=== PATIENT | female | born 1985 | race Caucasian/White ===

== ENCOUNTER 2021-02-06 20:22 | Emergency (ER) | payer MEDICAID ==
[~2021-02-06] VITALS: Ht 160 cm; Wt 77.3 kg
[2021-02-06] MEDS ORDERED: FLEXERIL 1010 MG/TAB PO (22:27)
[2021-02-07 00:15] VITALS: BP 128/69; PULSE 74; TEMP 98.2
== END 2021-02-07 00:15 | disposition home or self-care (01) ==
LOC: COL.ER 20:22
DX: S16.1XXA Strain of muscle, fascia and tendon at neck level, initial encounter (principal); X50.1XXA Overexertion from prolonged static or awkward postures, initial encounter
CPT/HCPCS: J1170; J1885; J3360

== ENCOUNTER 2021-05-06 12:49 | Emergency (ER) | payer MEDICAID ==
[~2021-05-06 12:49] MED LIST: FLEXERIL 1010 MG/TAB PO
[2021-05-06 13:04] VITALS: TEMP 98.4
[2021-05-06 13:44] LABS: BASO % 0.4 % (0.0-2.0); EOS # 0.1 (0.0-0.7); EOS % 0.8 % (0-4.0); GRAN # 4.9 (1.4-6.5); GRAN % 62.2 % (42.2-75.2); HEMATOCRIT 37.3 % (37.0-47.0); HEMOGLOBIN 12.2 g/dl (12.5-16.0); LYMPH # 2.1 (1.2-3.4); LYMPH % 27.1 % (20.0-51.0); MEAN CELL VOLUME 82 fl (80.0-100.0); MEAN CORPUSCULAR HEMOGLOBIN 27 pg (27.0-31.0); MEAN CORPUSCULAR HGB CONC 33 g/dl (33.0-37.0); MEAN PLATELET VOLUME 9.8 fl (7.4-10.4); MONO # 0.7 (0.1-0.6); MONO % 9.1 % (1.7-9.3); PLATELET COUNT 223 K/mm3 (130-400); RED BLOOD COUNT 4.55 M/mm3 (4.10-5.30); REDCELL DISTRIBUTION WIDTH-CV 12.9 % (11.5-14.5)
[2021-05-06 13:56] LABS: ALANINE AMINOTRANSFERASE 23 U/L (4-34); ALBUMIN 4.3 gm/dL (3.5-5.0); ALKALINE PHOSPHATASE 65 U/L (50-136); ANION GAP 8 mmol/L (7-16); AST,SGOT 27 U/L (15-37); BILIRUBIN,TOTAL 0.2 mg/dL (0.0-1.0); BLOOD UREA NITROGEN 14 mg/dL (7-17); CALCIUM 9.4 mg/dL (8.4-10.2); CARBON DIOXIDE 25 mmol/L (22-30); CHLORIDE 105 mmol/L (98-107); CREATININE, serum 0.66 (0.52-1.25); GLUCOSE 111 mg/dL (74-106); LIPASE 68 U/L (23-300); POTASSIUM 4.1 mmol/L (3.4-5.0); SODIUM 138 mmol/L (137-145); TOTAL PROTEIN 7.9 gm/dL (6.4-8.2)
[2021-05-06 14:01] LABS: C-REACTIVE PROTEIN < 0.5 mg/dL (0.0-0.9)
[2021-05-06 14:05] LABS: TROPONIN-I < 0.012 ng/mL (0.000-0.035)
[2021-05-06 14:22] LABS: COLLECTION METHOD CLEAN CATCH
[2021-05-06 14:30] LABS: PH 5 (5-8); SQUAMOUS EPITHELIAL None Seen /hpf; URINE APPEARANCE Clear; URINE BACTERIA None Seen /hpf; URINE BILIRUBIN Negative (NEGATIVE); URINE BLOOD Negative (NEGATIVE); URINE COLOR Straw; URINE GLUCOSE Negative (NEGATIVE); URINE KETONE Negative (NEGATIVE); URINE LEUKOCYTE ESTERASE Negative (NEGATIVE); URINE NITRATE Negative (NEGATIVE); URINE PROTEIN(semi-quant) Negative (NEGATIVE); URINE RBC 0-2 /hpf; URINE UROBILINOGEN Negative (NEGATIVE)
[2021-05-06 16:06] VITALS: BP 138/61; PULSE 80
== END 2021-05-06 16:12 | disposition home or self-care (01) ==
LOC: COL.ER 12:49
PROVIDERS: Family Medicine; Nurse Practitioner Primary Care
DX: R10.31 Right lower quadrant pain (principal); R10.32 Left lower quadrant pain; S16.1XXA Strain of muscle, fascia and tendon at neck level, initial encounter; R53.81 Other malaise; Z32.02 Encounter for pregnancy test, result negative; X58.XXXA Exposure to other specified factors, initial encounter
CPT/HCPCS: J7030

== ENCOUNTER 2021-08-04 09:13 | Emergency (ER) | payer MEDICAID ==
[~2021-08-04] VITALS: Ht 162.6 cm; Wt 80.0 kg
[2021-08-04 11:10] LABS: BASO % 0.4 % (0.0-2.0); EOS % 0.4 % (0-4.0); GRAN # 4.7 K/mm3 (1.4-6.5); GRAN % 62.1 % (42.2-75.2); HEMATOCRIT 39.3 % (37.0-47.0); HEMOGLOBIN 12.5 g/dl (12.5-16.0); LYMPH # 2.1 K/mm3 (1.2-3.4); LYMPH % 27.2 % (20.0-51.0); MEAN CELL VOLUME 84 fl (80.0-100.0); MEAN CORPUSCULAR HEMOGLOBIN 27 pg (27.0-31.0); MEAN CORPUSCULAR HGB CONC 32 g/dl (33.0-37.0); MEAN PLATELET VOLUME 10.5 fl (7.4-10.4); MONO # 0.7 K/mm3 (0.1-0.6); MONO % 9.6 % (1.7-9.3); PLATELET COUNT 242 K/mm3 (130-400); RED BLOOD COUNT 4.67 M/mm3 (4.10-5.30)
[2021-08-04 12:13] LABS: ALANINE AMINOTRANSFERASE 14 U/L (0-55); ALKALINE PHOSPHATASE 50 U/L (40-150); ANION GAP 6 mmol/L (7-16); AST,SGOT 14 U/L (5-34); BLOOD UREA NITROGEN 11 mg/dL (7-19); CALCIUM 9.8 mg/dL (8.4-10.2); CARBON DIOXIDE 27 mmol/L (22-29); CHLORIDE 107 mmol/L (98-107); GLUCOSE 88 mg/dL (70-99); POTASSIUM 4.3 mmol/L (3.5-4.5); SODIUM 140 mmol/L (136-145); TOTAL PROTEIN 7.3 gm/dL (6.2-8.1)
[2021-08-04 12:24] LABS: BILIRUBIN,TOTAL 0.2 mg/dL (0.2-1.2)
[2021-08-04 12:41] LABS: TROPONIN-I < 0.010 ng/mL (0.00-0.033)
[2021-08-04 13:12] VITALS: BP 101/81; PULSE 64; TEMP 98.1
== END 2021-08-04 13:14 | disposition home or self-care (01) ==
LOC: COL.ER 09:13
PROVIDERS: Physician Assistant
DX: R07.89 Other chest pain (principal)
CPT/HCPCS: J1885

== ENCOUNTER 2021-09-19 10:07 | Emergency (ER) | payer MEDICAID ==
[~2021-09-19] VITALS: Ht 160 cm; Wt 77.3 kg
[2021-09-19 12:50] VITALS: BP 123/80; PULSE 70; TEMP 98.1
== END 2021-09-19 13:03 | disposition home or self-care (01) ==
LOC: COL.ER 10:07
DX: J06.9 Acute upper respiratory infection, unspecified (principal); Z20.822 Contact with and (suspected) exposure to COVID-19

== ENCOUNTER 2021-11-20 19:35 | Emergency (ER) | payer MEDICAID ==
[~2021-11-20] VITALS: Ht 162.6 cm; Wt 79.5 kg
[2021-11-20 19:43] VITALS: BP 122/80; TEMP 97.5
[2021-11-20] MEDS ORDERED: FLEXERIL 1010 MG/TAB PO (20:06)
[2021-11-20 20:33] VITALS: PULSE 89
== END 2021-11-20 21:26 | disposition home or self-care (01) ==
LOC: COL.ER 19:35
DX: M54.6 Pain in thoracic spine (principal); M62.830 Muscle spasm of back; X50.1XXA Overexertion from prolonged static or awkward postures, initial encounter

== ENCOUNTER 2022-02-15 06:22 | Emergency (ER) | payer MEDICAID ==
[~2022-02-15] VITALS: Ht 160 cm; Wt 79.5 kg
[2022-02-15 06:36] VITALS: TEMP 98.6
[2022-02-15] MEDS ORDERED: FIORICET 325 MG1 TA1 PO (06:41)
[2022-02-15 06:59] LABS: COLLECTION METHOD CLEAN CATCH
[2022-02-15 07:07] LABS: PH 5 (5-8); SQUAMOUS EPITHELIAL 0-2 /hpf (0-10); URINE APPEARANCE Clear (CLEAR/HAZY); URINE BACTERIA None Seen /hpf (NONE SEEN); URINE BILIRUBIN Negative (NEGATIVE); URINE BLOOD Negative (NEGATIVE); URINE COLOR Straw (YELLOW); URINE GLUCOSE Negative (NEGATIVE); URINE KETONE Negative (NEGATIVE); URINE LEUKOCYTE ESTERASE Negative (NEGATIVE); URINE NITRATE Negative (NEGATIVE); URINE PROTEIN(semi-quant) Negative (NEGATIVE); URINE RBC 0-2 /hpf (0-2); URINE UROBILINOGEN Negative (NEGATIVE)
[2022-02-15 08:00] VITALS: BP 102/91; PULSE 73
== END 2022-02-15 08:15 | disposition home or self-care (01) ==
LOC: COL.ER 06:22
PROVIDERS: Emergency Medicine
DX: R51.9 Headache, unspecified (principal); Z86.69 Personal history of other diseases of the nervous system and sense organs; Z20.822 Contact with and (suspected) exposure to COVID-19
CPT/HCPCS: J2765; J7030

== ENCOUNTER 2022-04-03 16:05 | Emergency (ER) | payer MEDICAID ==
[~2022-04-03] VITALS: Ht 160 cm; Wt 84.1 kg
[~2022-04-03 16:05] MED LIST changes: +FIORICET 325 MG1 TA1 PO
[2022-04-03 16:25] VITALS: TEMP 98.5
[2022-04-03 16:47] LABS: COLLECTION METHOD CLEAN CATCH
[2022-04-03 16:53] LABS: MUCOUS Present (NOT PRESENT); PH 5 (5-8); SQUAMOUS EPITHELIAL 0-2 /hpf (0-10); URINE APPEARANCE Clear (CLEAR/HAZY); URINE BACTERIA None Seen /hpf (NONE SEEN); URINE BLOOD Negative (NEGATIVE); URINE COLOR Yellow (YELLOW); URINE GLUCOSE Negative (NEGATIVE); URINE KETONE Negative (NEGATIVE); URINE NITRATE Negative (NEGATIVE); URINE PROTEIN(semi-quant) Negative (NEGATIVE); URINE UROBILINOGEN Negative (NEGATIVE)
[2022-04-03] MEDS ORDERED: VOLTAREN 50MG T50 MG PO (17:54)
[2022-04-03] MEDS ORDERED: FLEXERIL 1010 MG/TAB PO (17:54)
[2022-04-03 18:15] VITALS: BP 150/83; PULSE 78
== END 2022-04-03 18:15 | disposition home or self-care (01) ==
LOC: COL.ER 16:05
PROVIDERS: Nurse Practitioner Family
DX: M54.50 Low back pain, unspecified (principal)
CPT/HCPCS: J1885

== ENCOUNTER 2022-04-05 08:02 | Day surgery (SDC) | payer MEDICAID ==
[2022-04-05] VITALS (8 sets, daily range): BP systolic 111–133; BP diastolic 66–83; PULSE 76–88; TEMP 96.9–97.9
[~2022-04-05] VITALS: Ht 160 cm; Wt 84.1 kg
[~2022-04-05 08:02] MED LIST changes: +VOLTAREN 50MG T50 MG PO
[2022-04-05 08:23] LABS: COLLECTION METHOD CLEAN CATCH
[2022-04-05 08:37] LABS: BASO % 0.4 % (0.0-2.0); EOS # 0.1 K/mm3 (0.0-0.7); EOS % 1.1 % (0.0-4.0); GRAN # 4.4 K/mm3 (1.4-6.5); GRAN % 61.8 % (42.2-75.2); HEMATOCRIT 37.3 % (37.0-47.0); HEMOGLOBIN 12.5 g/dl (12.5-16.0); LYMPH # 1.9 K/mm3 (1.2-3.4); LYMPH % 26.5 % (20.0-51.0); MEAN CELL VOLUME 81 fl (80.0-100.0); MEAN CORPUSCULAR HEMOGLOBIN 27 pg (27-31); MEAN CORPUSCULAR HGB CONC 34 g/dl (33.0-37.0); MEAN PLATELET VOLUME 9.6 fl (7.4-10.4); MONO # 0.7 K/mm3 (0.1-0.6); MONO % 10.1 % (1.7-9.3); PLATELET COUNT 235 K/mm3 (130-400); RED BLOOD COUNT 4.62 M/mm3 (4.10-5.30); REDCELL DISTRIBUTION WIDTH-CV 12.8 % (11.5-14.5)
[2022-04-05 08:40] LABS: PH 5 (5-8); URINE APPEARANCE Clear (CLEAR/HAZY); URINE BLOOD Negative (NEGATIVE); URINE COLOR Yellow (YELLOW); URINE GLUCOSE Negative (NEGATIVE); URINE KETONE Negative (NEGATIVE); URINE NITRATE Negative (NEGATIVE); URINE PROTEIN(semi-quant) Negative (NEGATIVE); URINE UROBILINOGEN Negative (NEGATIVE)
[2022-04-05 08:41] LABS: MUCOUS Present (NOT PRESENT); SQUAMOUS EPITHELIAL 0-2 /hpf (0-10); URINE BACTERIA None Seen /hpf (NONE SEEN); URINE RBC 0-2 /hpf (0-2)
[2022-04-05 09:13] LABS: ALBUMIN 3.7 gm/dL (3.5-5.0); BILIRUBIN,TOTAL 0.2 mg/dL (0.2-1.2); CALCIUM 9.3 mg/dL (8.4-10.2); CREATININE, serum 0.72 mg/dL (0.57-1.11); POTASSIUM 4.1 mmol/L (3.5-4.5); TOTAL PROTEIN 7.5 gm/dL (6.2-8.1)
--- NOTE | 2022-04-05 13:27 | NUR ---
Orders recieved from DOCUMENT SPECIALIST for Pepcid 20 MG IV.
--- NOTE | 2022-04-05 16:04 | NUR ---
1540 - Verbal report obtained from Gerry RN. 1545 - PT arrives w/ Gerry from PACU. PT drowsy but oriented. PT states pain 2/10 and refused intervention. Monitors applied and VSS. PT states mild nausea. PT provided w/ ice water per request, that she continues to sip. Call cast remains within reach. PT provided w/ emisis bag if needed. x3 sites are clean dry and intact, well approximated. Side rails x2 1400 - Interperter service was used to assist PT out of bed to commode. PT voided then back to bed. VSS. Visitor was brought in from the waiting room. Will monitor per intervals. Call cast remains within reach. Side rails x2. PT provided w/ crackers.
[2022-04-05] MEDS ORDERED: NORCO 325 MG-51 TAB PO (16:26)
[2022-04-05] MEDS ORDERED: MOTRIN 600600 MG/TAB PO (16:27)
--- NOTE | 2022-04-05 16:44 | NUR ---
1615 - VSS. PT continues to sleep. Call cast remains within reach. Visitor remains present. Side rails x2. 1630 - VSS. PT continues to sleep. Call cast remains within reach. Side rails x2.
--- NOTE | 2022-04-05 16:55 | NUR ---
1650 - PT states nausea has improved. PT provided w/ applesauce. Call cast remains within reach. Side rails x2. PT continues to belch.
--- NOTE | 2022-04-05 17:10 | NUR ---
1700 - PT has finished her applesauce. VSS. Call cast remains within reach. PT expressed desire to be discharged. Side rails x2.
--- NOTE | 2022-04-05 17:58 | NUR ---
1730 - IV discontinued. Catheter tip intact. Pressure bandage applied. NO redness or swelling noted. DC instructions and educational material reviewed with the PT w/ interperter. PT verbalized understanding and signed the realted paperwork. PT assisted with changing into personal clothes by RN. PT dismissed from [facility] via wheelchair to the PT entrence by Cheri WILSON. PT has DC packet and personal belongings and was transferred into the care of a friend who is driving private car. Questions answered to PT satisfaction.
== END 2022-04-05 18:00 | disposition home or self-care (01) ==
LOC: COL.ER 08:02 → SDCO 09:34
PROVIDERS: Emergency Medicine
DX: K35.80 Unspecified acute appendicitis (principal)
CPT/HCPCS: OP; J0330; J1100; J2270; J2405; J2543; J2550; J2704; J3010; J7030; J7120; Q9967

== ENCOUNTER 2022-04-10 13:44 | Emergency (ER) | payer MEDICAID ==
[~2022-04-10] VITALS: Ht 160 cm; Wt 84.5 kg
[~2022-04-10 13:44] MED LIST changes: +MOTRIN 600600 MG/TAB PO; +NORCO 325 MG-51 TAB PO
[2022-04-10 13:58] VITALS: TEMP 98
[2022-04-10 14:36] LABS: BASO % 0.2 % (0.0-2.0); EOS # 0.1 K/mm3 (0.0-0.7); GRAN # 5.7 K/mm3 (1.4-6.5); GRAN % 63.7 % (42.2-75.2); HEMATOCRIT 40.9 % (37.0-47.0); LYMPH # 2.2 K/mm3 (1.2-3.4); LYMPH % 24.3 % (20.0-51.0); MEAN CELL VOLUME 82 fl (80.0-100.0); MEAN CORPUSCULAR HEMOGLOBIN 26 pg (27-31); MEAN CORPUSCULAR HGB CONC 32 g/dl (33.0-37.0); MEAN PLATELET VOLUME 9.7 fl (7.4-10.4); MONO % 10.5 % (1.7-9.3); PLATELET COUNT 281 K/mm3 (130-400); RED BLOOD COUNT 4.98 M/mm3 (4.10-5.30); REDCELL DISTRIBUTION WIDTH-CV 13.2 % (11.5-14.5)
[2022-04-10 14:58] LABS: ALBUMIN 3.8 gm/dL (3.5-5.0); BILIRUBIN,TOTAL 0.3 mg/dL (0.2-1.2); CALCIUM 9.8 mg/dL (8.4-10.2); CREATININE, serum 0.75 mg/dL (0.57-1.11); TOTAL PROTEIN 7.8 gm/dL (6.2-8.1)
[2022-04-10] MEDS ORDERED: MILK OF MA400 MG/52 PO (16:27)
[2022-04-10 16:34] LABS: COLLECTION METHOD CLEAN CATCH
[2022-04-10 16:35] VITALS: BP 118/72; PULSE 79
[2022-04-10 16:44] LABS: URINE APPEARANCE Clear (CLEAR/HAZY); URINE BLOOD TRACE-INTACT (NEGATIVE); URINE COLOR Straw (YELLOW); URINE GLUCOSE Negative (NEGATIVE); URINE KETONE Negative (NEGATIVE); URINE NITRATE Negative (NEGATIVE); URINE PROTEIN(semi-quant) Negative (NEGATIVE); URINE UROBILINOGEN 0.2 E.U/dL (0.2-1.0)
[2022-04-10 16:59] LABS: SQUAMOUS EPITHELIAL 0-2 /hpf (0-10); URINE BACTERIA None Seen /hpf (NONE SEEN); URINE RBC None Seen /hpf (0-2)
== END 2022-04-10 16:35 | disposition home or self-care (01) ==
LOC: COL.ER 13:44
PROVIDERS: Emergency Medicine
DX: N83.202 Unspecified ovarian cyst, left side (principal); Z32.02 Encounter for pregnancy test, result negative
CPT/HCPCS: J2270; J2405; J7120; Q9967

== ENCOUNTER 2022-05-03 21:01 | Emergency (ER) | payer MEDICAID ==
[~2022-05-03] VITALS: Ht 160 cm; Wt 84.1 kg
[~2022-05-03 21:01] MED LIST changes: +MILK OF MA400 MG/52 PO
[2022-05-03 21:13] VITALS: TEMP 97.5
[2022-05-03 21:49] LABS: STREP SCREEN NEGATIVE
[2022-05-03 22:16] VITALS: BP 118/73; PULSE 78
== END 2022-05-03 22:16 | disposition home or self-care (01) ==
LOC: COL.ER 21:01
PROVIDERS: Nurse Practitioner
DX: U07.1 COVID-19 (principal)

== ENCOUNTER 2022-11-12 14:48 | Emergency (ER) | payer MEDICAID ==
[~2022-11-12] VITALS: Ht 160 cm; Wt 86.4 kg
[~2022-11-12 14:48] MED LIST changes: +BACTRIM DS 8001 TAB PO; +OMNICEF 300MG300 MG PO; +PEPCID 20MG TAB20 MG PO; +ROXICODONE 55 MG/TAB PO; +ZOFRAN ODT4 MG PO
[2022-11-12 15:02] VITALS: TEMP 97.9
[2022-11-12] MEDS ORDERED: VOLTAREN 75 DR75 MG PO (16:41)
[2022-11-12 17:02] VITALS: BP 137/76; PULSE 78
== END 2022-11-12 17:02 | disposition home or self-care (01) ==
LOC: COL.ER 14:48
DX: S76.111A Strain of right quadriceps muscle, fascia and tendon, initial encounter (principal); X58.XXXA Exposure to other specified factors, initial encounter

== ENCOUNTER 2022-11-24 22:54 | Emergency (ER) | payer MEDICAID ==
[~2022-11-24] VITALS: Ht 160 cm; Wt 90.0 kg
[~2022-11-24 22:54] MED LIST changes: +VOLTAREN 75 DR75 MG PO
[2022-11-24 23:00] VITALS: TEMP 98
[2022-11-24 23:18] LABS: BASO % 0.4 % (0.0-2.0); EOS # 0.1 K/mm3 (0.0-0.7); EOS % 0.8 % (0.0-4.0); GRAN # 4.4 K/mm3 (1.4-6.5); GRAN % 51.2 % (42.2-75.2); HEMATOCRIT 38.6 % (37.0-47.0); HEMOGLOBIN 12.7 g/dl (12.5-16.0); LYMPH # 3.2 K/mm3 (1.2-3.4); LYMPH % 37.1 % (20.0-51.0); MEAN CELL VOLUME 81 fl (80.0-100.0); MEAN CORPUSCULAR HEMOGLOBIN 27 pg (27-31); MEAN CORPUSCULAR HGB CONC 33 g/dl (33.0-37.0); MEAN PLATELET VOLUME 9.5 fl (7.4-10.4); MONO # 0.9 K/mm3 (0.1-0.6); MONO % 10.3 % (1.7-9.3); PLATELET COUNT 300 K/mm3 (130-400); RED BLOOD COUNT 4.76 M/mm3 (4.10-5.30); REDCELL DISTRIBUTION WIDTH-CV 13.2 % (11.5-14.5)
[2022-11-24 23:41] LABS: ALANINE AMINOTRANSFERASE 30 U/L (0-55); ALBUMIN 4.1 gm/dL (3.5-5.0); ALKALINE PHOSPHATASE 95 U/L (40-150); ANION GAP 10 mmol/L (7-16); AST,SGOT 25 U/L (5-34); BILIRUBIN,TOTAL 0.2 mg/dL (0.2-1.2); BLOOD UREA NITROGEN 15 mg/dL (7-19); CALCIUM 9.5 mg/dL (8.4-10.2); CARBON DIOXIDE 24 mmol/L (22-29); CHLORIDE 105 mmol/L (98-107); CREATININE, serum 0.82 mg/dL (0.57-1.11); GLUCOSE 106 mg/dL (70-99); LIPASE 33 U/L (8-78); POTASSIUM 3.7 mmol/L (3.5-4.5); SODIUM 139 mmol/L (136-145)
[2022-11-24 23:47] LABS: TROPONIN-I < 0.010 ng/mL (0.00-0.033)
[2022-11-25 00:39] VITALS: BP 117/90; PULSE 63
== END 2022-11-25 00:47 | disposition home or self-care (01) ==
LOC: COL.ER 22:54
PROVIDERS: Nurse Practitioner Primary Care
DX: R07.89 Other chest pain (principal)
CPT/HCPCS: J1200

== ENCOUNTER → 2023-01-06 | Outpatient (CLI) | payer MEDICAID | LOC: COL.RAD 11:48 | DX: R06.02 Shortness of breath (principal) ==

== ENCOUNTER 2023-12-19 11:00 | Emergency (ER) | payer SELFPAY ==
[~2023-12-19] VITALS: Ht 160 cm; Wt 86.4 kg
[2023-12-19 11:09] VITALS: TEMP 97.1
[2023-12-19] MEDS ORDERED: Ketorolac 30 MG/ML VIAL IM ONE (12:00)
[2023-12-19 12:46] LABS: COLLECTION METHOD CLEAN CATCH
[2023-12-19 12:55] LABS: URINE APPEARANCE CLOUDY (CLEAR/HAZY); URINE BLOOD 3+ (NEGATIVE); URINE COLOR YELLOW (YELLOW); URINE GLUCOSE NEGATIVE (NEGATIVE); URINE KETONE NEGATIVE (NEGATIVE); URINE NITRATE NEGATIVE (NEGATIVE); URINE PROTEIN(semi-quant) NEGATIVE (NEGATIVE); URINE UROBILINOGEN 0.2 E.U/dL (0.2-1.0)
[2023-12-19 13:56] VITALS: BP 121/71; PULSE 87
== END 2023-12-19 13:57 | disposition home or self-care (01) ==
LOC: COL.ER 11:00
PROVIDERS: Physician Assistant
DX: M62.830 Muscle spasm of back (principal); Z87.81 Personal history of (healed) traumatic fracture
CPT/HCPCS: J1885; J2360